=== PATIENT | female | born 1955 | race Caucasian/White ===

== ENCOUNTER 2017-07-30 05:57 | Day surgery (SDC) | payer OTHER ==
[2017-07-30] MEDS ORDERED: Ketamine HCl 50 MG/ML IV ONE (05:58)
[2017-07-30] MEDS ORDERED: DIPRIVAN 200 MG/20 ML IV ONE (05:58)
[2017-07-30] MEDS ORDERED: Lactated Ringers 1,000 ML IV SCH (06:30)
[2017-07-30] MEDS ORDERED: Zofran 4 MG/2 ML VIAL IV STA (06:44)
[2017-07-30] MEDS ORDERED: Lactated Ringers 1,000 ML IV ONE (07:42)
[2017-07-30 09:32] VITALS: BP 169/79; PULSE 88; O2SAT 92
--- NOTE | 2017-07-30 09:40 | OP ---
SURGERY DATE/TIME: 07/30/2017717 PREOPERATIVE DIAGNOSIS: Screening colonoscopy. POSTOPERATIVE DIAGNOSIS: Sigmoid colon polyp. PROCEDURE: Colonoscopy. SURGEON: Bhupendra Burleson M.D. ANESTHESIA: MAC by Jim Kim CRNA. ESTIMATED BLOOD LOSS: Minimal. SPECIMENS: Hot snare polypectomy of proximal sigmoid colon polyp. DESCRIPTION OF PROCEDURE: After informed written consent was obtained, the patient was taken to the endoscopy suite. She underwent monitored anesthesia and digital rectal exam showed normal sphincter tone and no internal lesions. The scope was inserted into the rectum and sequentially the entire colonic mucosa was traversed. The level of cecum was reached and verified with direct visualization of ileocecal valve. Upon withdrawal careful mucosal inspection revealed no gross abnormalities until the proximal sigmoid was reached. There was a large sessile polyp present in this area which was removed with hot snare. The entire lesion appeared to be removed adequately and the polyp was retrieved and sent for pathology testing. On withdrawal no other abnormalities were encountered. The scope was removed and the patient was transferred to the recovery room in excellent condition.
== END 2017-07-30 09:35 | disposition home or self-care (01) ==
LOC: SDC 05:57
PROVIDERS: ATTEND Family Medicine
PROC: 0DBN8ZZ Excision of Sigmoid Colon, Via Natural or Artificial Opening Endoscopic (ICD-10-PCS; principal; 2017-07-30)
DX: Z12.11 Encounter for screening for malignant neoplasm of colon (principal); K63.5 Polyp of colon
CPT/HCPCS: 00812; 93005; J2405; J2704